=== PATIENT | female | born 1960 | race Two or more races ===

== ENCOUNTER 2017-04-27 06:13 | Emergency (ER) | payer MEDICARE ==
[~2017-04-27] VITALS: Ht 157.5 cm; Wt 81.0 kg
[~2017-04-27 06:13] MED LIST: CYCL-36 PO; IBUP800T23 PO
[2017-04-27 06:14] VITALS: BP 131/75; PULSE 75; RESP 18; TEMP 97.8; O2SAT 97
[2017-04-27] MEDS ORDERED: SODIUM CHLORIDE 0.9% FLUSH 10 ML FLUSH IVF PRN (07:15)
--- NOTE | 2017-04-27 07:29 | PD ---
HPI Chief Complaint: Abdominal Pain Time Seen by Provider: 07:09 Travel History International Travel<30 days: No Contact w/Intl Traveler<30days: No Traveled to known affect area: No History of Present Illness HPI 56 y/o female presents with diffuse abdominal pain and black stools over the past 2 days. She states that 3 weeks ago she had a colonoscopy with Dr. ruiz for follow-up of her polyp. She states that she had a follow-up appointment after this and was doing fine. She states she recently also was on antibiotics for a bacteria of her stomach. She states that she had a test that showed that it had cleared. She presents with her who helps assist with history. Quality is comes in waves. Severity is moderate. She denies migration the pain. She denies other concurrent complaints. PFSH Past Medical History Medical History: Denies Significant Hx Diminished Hearing: No Tetanus Vaccination: Unknown Influenza Vaccination: No ?: Not Past Surgical History Surgical History: No Previous Surgery Social History Alcohol Use: No Tobacco Use: No Substance Use: No Allergies-Medications (Allergen,Severity, Reaction): Coded Allergies: Sulfa (Verified Allergy, Severe, 04/27/17) Reported Meds & Prescriptions Reported Meds & Active Scripts Active No Active Prescriptions or Reported Medications Review of Systems Except as stated in HPI: all other systems reviewed are Neg Physical Exam Narrative GENERAL: Well-nourished, well-developed patient. well appearing SKIN: Warm and dry. HEAD: Normocephalic and atraumatic. EYES: No injection or drainage. ENT: No nasal drainage noted. NECK: Supple, trachea midline. CARDIOVASCULAR: Regular rate and rhythm RESPIRATORY: No increased effort. No accessory muscle use. GASTROINTESTINAL: Abdomen soft, mild tenderness diffusely, nondistended. RECTAL EXAM: Performed with plastic surgery specialist and after permission. No large external hemorrhoid or fissure, stool is dark brown, non-bloody. NEUROLOGICAL: Awake and alert. moves all extremities. Normal speech. Data Data Last Documented VS Vital Signs Date Time Temp Pulse Resp B/P Pulse Ox O2 Delivery O2 Flow Rate FiO2 04/27/17 09:53 63 20 113/64 100 Room Air 04/27/17 06:14 97.8 Orders Complete Blood Count With Diff (04/27/17 07:09) Comprehensive Metabolic Panel (04/27/17 07:09) Lipase (04/27/17 07:09) Prothrombin Time / Inr (Pt) (04/27/17 07:09) Act Partial Throm Time (Ptt) (04/27/17 07:09) Type And Screen (04/27/17 07:09) Ecg Monitoring (04/27/17 07:09) Iv Access Insert/Monitor (04/27/17 07:09) Oximetry (04/27/17 07:09) Sodium Chloride 0.9% Flush (Ns Flush) (04/27/17 07:15) Ct Abd/Pel W Iv Contrast(Rout) (04/27/17 ) Iohexol 350 Inj (Omnipaque 350 Inj) (04/27/17 09:09) Labs Laboratory Tests Test 04/27/17 06:38 White Blood Count 9.3 TH/MM3 Red Blood Count 4.52 MIL/MM3 Hemoglobin 13.4 GM/DL Hematocrit 39.6 % Mean Corpuscular Volume 87.6 FL Mean Corpuscular Hemoglobin 29.6 PG Mean Corpuscular Hemoglobin 33.7 % Concent Red Cell Distribution Width 14.0 % Platelet Count 247 TH/MM3 Mean Platelet Volume 9.4 FL Neutrophils (%) (Auto) 63.7 % Lymphocytes (%) (Auto) 25.6 % Monocytes (%) (Auto) 8.7 % Eosinophils (%) (Auto) 1.5 % Basophils (%) (Auto) 0.5 % Neutrophils # (Auto) 5.9 TH/MM3 Lymphocytes # (Auto) 2.4 TH/MM3 Monocytes # (Auto) 0.8 TH/MM3 Eosinophils # (Auto) 0.1 TH/MM3 Basophils # (Auto) 0.0 TH/MM3 CBC Comment DIFF FINAL Differential Comment Prothrombin Time 10.7 SEC Prothromb Time International 1.0 RATIO Ratio Activated Partial 31.5 SEC Thromboplast Time Sodium Level 140 MEQ/L Potassium Level 4.0 MEQ/L Chloride Level 104 MEQ/L Carbon Dioxide Level 25.4 MEQ/L Anion Gap 11 MEQ/L Blood Urea Nitrogen 9 MG/DL Creatinine 0.63 MG/DL Estimat Glomerular Filtration 97 ML/MIN Rate Random Glucose 93 MG/DL Calcium Level 9.0 MG/DL Total Bilirubin 0.3 MG/DL Aspartate Amino Transf 35 U/L (AST/SGOT) Alanine Aminotransferase 59 U/L (ALT/SGPT) Alkaline Phosphatase 128 U/L Total Protein 7.5 GM/DL Albumin 3.6 GM/DL Lipase 122 U/L Blood Type O POSITIVE Antibody Screen NEGATIVE Blood Bank Comment MDM Medical Decision Making Medical Screen Exam Complete: Yes Emergency Medical Condition: Yes Medical Record Reviewed: Yes (pm[facility] confirmed) Interpretation(s) CBC & BMP Diagram 04/27/17 06:38 Last 24 hours Impressions Abdomen/Pelvis CT 04/27/17 0000 Signed Impressions: Service Date/Time: Thursday, April 27, 2017 09:02 - CONCLUSION: 1. The patient is post hysterectomy. 2. No definite abnormality to explain the patient's abdominal pain is identified. Geoff Cruz MD Differential Diagnosis Gastroenteritis, diverticulitis, stone, gastritis... Narrative Course Will check blood work, CT scan and reevaluate ed workup no acute, Patient denies any new complaints, all questions answered. Patient knows that follow up is incumbent on them and to return to the emergency room immediately if new or worsening symptoms develop. Patient given strict return precautions, vitals reviewed and are normal, agrees to further workup as an outpatient. Diagnosis Primary Impression: Abdominal pain Qualified Code: R10.9 - Abdominal pain, unspecified location Patient Instructions: General Instructions Additional Instructions: tylenol as needed, follow with your gi specialist this week, return as needed Med/Other Pt SpecificInfo: No Change to Meds Scripts No Active Prescriptions or Reported Meds Disposition: 01 DISCHARGE HOME Condition: Stable Bernarda Kang MD Apr 27, 2017 07:29
[2017-04-27 07:31] VITALS: RESP 18; O2SAT 99
[2017-04-27 07:47] LABS: AUTOMATED NEUTROPHIL # 5.9 TH/MM3 (1.8-7.7); BASOPHIL % 0.5 % (0.0-2.0); EOSINOPHIL # 0.1 TH/MM3 (0-0.4); EOSINOPHIL % 1.5 % (0.0-4.0); HEMATOCRIT 39.6 % (35.0-46.0); HEMO FLAGS DIFF FINAL; LYMPH % 25.6 % (9.0-44.0); LYMPHOCYTE # 2.4 TH/MM3 (1.0-4.8); MEAN CELL VOLUME 87.6 FL (80.0-100.0); MEAN CORPUSCULAR HEMOGLOBIN 29.6 PG (27.0-34.0); MEAN CORPUSCULAR HGB CONC 33.7 % (32.0-36.0); MONO % 8.7 % (0.0-8.0); NEUT % 63.7 % (16.0-70.0); PLATELET COUNT 247 TH/MM3 (150-450); RED BLOOD COUNT 4.52 MIL/MM3 (4.00-5.30); WHITE BLOOD COUNT 9.3 TH/MM3 (4.0-11.0)
[2017-04-27 07:54] LABS: APTT (PATIENT) 31.5 SEC (24.3-30.1); PROTHROMBIN TIME - PATIENT 10.7 SEC (9.8-11.6)
[2017-04-27 08:06] LABS: ALT (GPT) 59 U/L (10-53); ANION GAP 11 MEQ/L (5-15); AST (GOT) 35 U/L (15-37); BICARBONATE 25.4 MEQ/L (21.0-32.0); BLOOD UREA NITROGEN 9 MG/DL (7-18); CHLORIDE 104 MEQ/L (98-107); GLOMERULAR FILTRATION RATE 97 ML/MIN (>89); SODIUM (NA) 140 MEQ/L (136-145)
[2017-04-27 08:08] LABS: ALKALINE PHOSPHATASE 128 U/L (45-117); TOTAL BILIRUBIN ADULT 0.3 MG/DL (0.2-1.0)
[2017-04-27] MEDS ORDERED: IOHEXOL 350 MG/ML 10 ML VIAL (for RAD DIAG) IV ONE (09:09)
--- NOTE | 2017-04-27 09:39 | RADRPT ---
EXAM DATE/TIME: 04/27/2017 09:02 [facility] COMPARISON: No previous studies available for comparison. INDICATIONS : Abdomen pain for 3 days. IV CONTRAST: 92 cc Omnipaque 350 (iohexol) IV ORAL CONTRAST: No oral contrast ingested. RADIATION DOSE: 6.88 CTDIvol (mGy) MEDICAL HISTORY : Black stool, Colonscopy 3 weeks ago. SURGICAL HISTORY : Hysterectomy. ENCOUNTER: Initial ACUITY: 3 days PAIN SCALE: 3/10 LOCATION: TECHNIQUE: Volumetric scanning of the abdomen and pelvis was performed. Using automated exposure control and ad justment of the mA and/or kV according to patient size, radiation dose was kept as low as reasonably achievable to obtain optimal diagnostic quality images. FINDINGS: LOWER LUNGS: The visualized lower lungs are clear. LIVER: Homogeneous density without lesion. There is no dilation of the biliary tree. No calcified gallston es. SPLEEN: Normal size without lesion. PANCREAS: Within normal limits. KIDNEYS: Normal in size and shape. There is no mass, stone or hydronephrosis. ADRENAL GLANDS: Within normal limits. VASCULAR: There is no aortic aneurysm. BOWEL/MESENTERY: The stomach, small bowel, and colon demonstrate no acute abnormality. There is no free intraperitone al air or fluid. ABDOMINAL WALL: Within normal limits. RETROPERITONEUM: There is no lymphadenopathy. BLADDER: No wall thickening or mass. REPRODUCTIVE: Within normal limits. INGUINAL: There is no lymphadenopathy or hernia. MUSCULOSKELETAL: There are degenerative changes in the lower lumbar spine. CONCLUSION: 1. The patient is post hysterectomy. 2. No definite abnormality to explain the patient's abdominal pain is identified. Geoff Cruz MD on April 27, 2017 at 9:28 Board Certified Radiologist. This report was verified electronically.
[2017-04-27 09:53] VITALS: BP_SYST 103; BP_SYST 113; BP_DIAS 64; PULSE 63; RESP 20; O2SAT 100
== END 2017-04-27 10:20 | disposition home or self-care (01) ==
LOC: NEPC 06:13
DX: R10.9 Unspecified abdominal pain (principal)
CPT/HCPCS: 74177; 80053; 83690; 85025; 85610; 85730; 86850; 86900; 86901; 99285; Q9967